=== PATIENT | female | born 1970 | race Caucasian/White ===

== ENCOUNTER 2020-01-10 11:00 | Emergency (ER) | payer MEDICAID ==
[2020-01-10 11:17] VITALS: Ht 154.9 cm
[2020-01-10 13:45] VITALS: BP 121/89
== END 2020-01-10 14:45 | disposition home or self-care (01) ==
LOC: ED 11:00
DX: M54.16 Radiculopathy, lumbar region (principal); M51.36 Other intervertebral disc degeneration, lumbar region; M47.816 Spondylosis without myelopathy or radiculopathy, lumbar region; M17.12 Unilateral primary osteoarthritis, left knee; I10 Essential (primary) hypertension; E66.9 Obesity, unspecified; Z68.35 Body mass index [BMI] 35.0-35.9, adult
CPT/HCPCS: J1100; J1885; Q0092